=== PATIENT | male | born 1975 | race African-American/Black ===

== ENCOUNTER 2024-01-28 11:14 | Emergency (ER) | payer OTHER ==
[2024-01-28 11:21] VITALS: BP 147/87; PULSE 66; RESP 18; TEMP 98.1; BMI 23.1
[2024-01-28] MEDS ORDERED: KETOROLAC TROMETHAMINE 30 MG/1 ML VIAL ONE (13:06)
[2024-01-28] MEDS: KETOROLAC TROMETHAMINE 30 MG/1 ML VIAL IM ONE (13:07)
== END 2024-01-28 14:34 | disposition home or self-care (01) ==
LOC: JERFT 11:14
PROC: 3E0133Z Introduction of Anti-inflammatory into Subcutaneous Tissue, Percutaneous Approach (ICD-10-PCS; principal; 2024-01-28)
DX: M77.8 Other enthesopathies, not elsewhere classified (principal)
CPT/HCPCS: 73070-TC-RT-FY; 99284-25